=== PATIENT | female | born 1990 | race Caucasian/White ===

== ENCOUNTER 2017-09-14 07:45 | Emergency (ER) | payer BC ==
[2017-09-14] MEDS ORDERED: Morphine 5 MG/ML SYRINGE ONE (08:11)
[2017-09-14 08:34] LABS: #Basophils 0.2 thou/uL (0.0-0.2); #Lymphocytes 5.4 thou/uL (1.20-3.40); #Monocytes 0.6 thou/uL (0.11-0.59); #Neutrophils 6.1 thou/uL (1.40-6.50); %Basophils 1.5 % (0.0-1.0); %Eosinophils 0.1 % (0.0-10.0); %Lymphocytes 44.1 % (21.0-51.0); %Neutrophils 49.4 % (42.0-75.0); Hemoglobin 13.9 g/dL (12.0-16.0); Mean Corpuscular HGB CONC 34.4 g/dL (32.0-36.0); Mean Corpuscular Hemoglobin 29.9 pg (27.0-31.0); Mean Corpuscular Volume 86.8 fl (81.0-99.0); Mean Platelet Volume 10.2 fL (7.4-10.4); Platelet Count 187 thou/uL (130-400); RBC Distribution Width 12.2 % (11.5-14.5); Red Blood Cell (RBC) Count 4.64 mill/uL (4.20-5.40); White Blood Cell (WBC) Count 12.3 thou/uL (4.8-10.8)
[2017-09-14 08:37] LABS: ALT (SGPT) 15 U/L (8-55); AST (SGOT) 19 U/L (5-34); Albumin 4.2 g/dL (3.5-5.0); Alkaline Phosphatase 50 U/L (40-150); Anion Gap 14 mmol/L (10-20); BUN (Urea Nitrogen) 13 mg/dL (7.0-18.7); Bilirubin, Total 0.2 mg/dL (0.2-1.2); Calc. Creatinine Clearance 0 mL/min (70-130); Calcium 9.3 mg/dL (7.8-10.44); Carbon Dioxide 18 mmol/L (22-29); Chloride 110 mmol/L (98-107); Estimated GFR-MDRD 78; Globulin 2.9 g/dL (2.4-3.5); Glucose 81 mg/dL (70-105); Potassium 3.6 mmol/L (3.5-5.1); Protein, Total 7.1 g/dL (6.0-8.3); Sodium 138 mmol/L (136-145)
[2017-09-14] MEDS ORDERED: HYDROcodone/Acetaminophen 10/325 mg Tablet ONE (09:11)
[2017-09-14] MEDS ORDERED: Ibuprofen 800 MG TAB ONE (09:11)
[2017-09-14 09:20] LABS: Bilirubin Negative (Negative); Blood, Urine Moderate (Negative); Glucose, Urine (Dipstick) Negative (Negative); Leukocyte Negative (Negative); Nitrite Negative (Negative); Protein, Urine (Dipstick) Negative (Neg-Trace); Urobilinogen 0.2 mg/dL (0.2-1.0); pH, Urine 5.5 (5.0-9.0)
[2017-09-14 09:21] LABS: Clarity Slightly Cloudy (Clear)
[2017-09-14 09:23] LABS: Bacteria/HPF 2+ HPF (None Seen); Pregnancy Test - Urine (BHCG) Negative (Negative); Pregu Control Background? CLEAR/WHITE (CLR/WHITE); Pregu Control Bar Appear? YES (CONTROL BAR); RBC/HPF 0-3 HPF (0-3); Squamous Epithelial 0-3 HPF (0-3); WBC/HPF 0-3 HPF (0-3)
--- NOTE | 2017-09-14 10:08 | ULT ---
PELVIC ULTRASOUND: DAET: 09/14/17. COMPARISON: 06/01/14. HISTORY: Pelvic pain. TECHNIQUE: Multiplanar, lucia scale, sonographic imaging of the pelvis obtained with transabdominal and endovagin al imaging. The ovaries are assessed with color flow and spectral analysis. FINDINGS: There is no significant free fluid in the pelvis. The uterus measures 8.2 x 5.9 x 4.4 cm and demonstrates a normal endometrial stripe thickness of 7 mm . The right ovary measures 2.7 x 2.2 x 1.3 cm and there is no evidence for an adnexal or ovarian mass. Blood flow could not be documented in the right ovary, likely secondary to its posterior position as there is no enlargement of the right ovary and there is no adjacent free fluid. The left ovary measures 3.4 x 3.0 x 1.6 cm and contains a 2.1 x 2.3 x 1.0 cm cyst. There is normal b lood flow documented within the left ovary. IMPRESSION: 1. Left ovarian cyst measuring up to 2.3 cm. 2. No free fluid. Ovarian blood flow on the right could not be documented, which is likely technica l in nature given the absence of right ovarian enlargement and the absence of free pelvic fluid. POS: [facility]
[2017-09-17 01:36] LABS: Chlamydia by PCR Not Detected (NotDetected); GC by PCR Not Detected (NotDetected)
== END 2017-09-14 10:39 | disposition home or self-care (01) ==
LOC: SCSER 07:45
DX: R10.2 Pelvic and perineal pain (principal); F41.9 Anxiety disorder, unspecified; F32.9 Major depressive disorder, single episode, unspecified; F17.210 Nicotine dependence, cigarettes, uncomplicated; F43.10 Post-traumatic stress disorder, unspecified; Z79.899 Other long term (current) drug therapy
CPT/HCPCS: 76856; 80053; 81003; 81015; 81025; 85025; 87491; 87591; 96361; 96374; J2270